=== PATIENT | female | born 1950 | race Caucasian/White ===

== ENCOUNTER 2016-10-18 18:03 | Emergency (ER) | payer MEDICARE, SELFPAY ==
[2016-10-18 15:10] LABS: BASOPHILS 0.3 %; BASOPHILS ABSOLUTE 0.02 10/3/uL (0.0-0.16); EOSINOPHILS 0.5 %; EOSINOPHILS ABSOLUTE 0.03 10/3/uL (0.0-0.53); ER CBC TAT 0 Hrs 14 Mins; HEMATOCRIT 36.2 % (36.0-48.0); HEMOGLOBIN 11.6 g/dL (12.0-16.0); IMMATURE GRANULOCYTES 0.3 %; IMMATURE GRANULOCYTES ABSOLUTE 0.02 10/3/uL (0.0-0.11); LYMPHOCYTES 19.5 %; LYMPHOCYTES ABSOLUTE 1.28 10/3/uL (0.67-4.30); MEAN CORPUSCULAR HEMOGLOB 26.9 pg (26.0-34.0); MEAN PLATELET VOLUME 10.1 fL (9.2-13.0); MONOCYTES 6.2 %; MONOCYTES ABSOLUTE 0.41 10/3/uL (0.21-1.20); NEUTROPHILS 73.2 %; NEUTROPHILS ABSOLUTE 4.82 10/3/uL (2.02-8.40); PLATELET COUNT 421 10/3/uL (150-400); RBC DISTRIBUTION WIDTH 14.5 % (12.0-16.0); RED CELL COUNT 4.31 10/6/uL (4.0-5.6); WHITE BLOOD CELLS 6.6 10/3/uL (4.5-10.5)
[2016-10-18 15:11] LABS: MANUAL DIFF NO %
[2016-10-18 15:25] LABS: ASCORBIC ACID (UR NOT ORDER) NEG (NEG); BILIRUBIN, URINE SMALL (NEG); ER URINALYSIS TAT 0 Hrs 18 Mins; KETONE, URINE 20 MG/DL (NEG); LEUKOCYTE ESTERASE(NOT OR SMALL (NEG); NITRITE (URINE) NEG (NEG); WBC (NOT ORDERED) (RFLEX) 12 (0-5)
[2016-10-18 15:27] LABS: ALBUMIN 3.7 G/DL (3.5-5.0); ALKALINE PHOSPHATASE 81 U/L (45-117); BUN (BLOOD UREA NITROGEN) 16 MG/DL (6-23); CHEST PAIN PROFILE TAT 0 Hrs 31 Mins; CHLORIDE, SERUM 106 MMOL/L (96-112); CO2 (CARBON DIOXIDE) 28 MMOL/L (24-34); CREATININE 0.67 MG/DL (0.55-1.02); DIRECT BILIRUBIN < 0.1 MG/DL (0.0-0.4); GFR AFRICAN AMERICAN 108 ML/MIN (>=60); GFR NON AFRICAN AMERICAN 93 ML/MIN (>=60); GLUCOSE, SERUM 93 MG/DL (60-99); INDIRECT BILIRUBIN(NOT ORDER) 0.2 MG/DL (0.1-0.9); POTASSIUM, SERUM 3.9 MMOL/L (3.5-5.3); SGOT(AST) 14 U/L (5-40); SGPT(ALT) 15 U/L (5-65); SODIUM, SERUM 139 MMOL/L (135-148); TOTAL BILIRUBIN 0.3 MG/DL (0-1.2); TOTAL PROTEIN 7.1 G/DL (6.0-8.5); TROPONIN I <0.02 NG/ML (<0.05)
[2016-10-18 15:28] LABS: INTERNATIONAL NORMAL RATI 1.2 UNITS (-); PARTIAL THROMBO TIME 27.4 SEC (22.5-37.2); PROTIME (NOT ORD) 14.6 SEC (12.0-14.5)
[~2016-10-18 18:03] MED LIST: ADVAIR115P INH; ADVAIR250 INH; ADVIL PO; ALEVE220 MG PO; ANTACID OTC PO; ANUSOL-HC2.5 % RE; ASA5GR PO; ASABAYER PO; ATROVENTUD INH; ATV1 PO; B121000P IM; BUSPAR10 PO; CAT1 PO; CEFT2 PO; COMBIVENT INH; COMBIVENT INHAL15 GM INH; CRESTOR10 PO; FLUCON150 PO; FLUOXETINE20 MG OR; GOODY'S EX PO; HYDROCHLOROT25 MG PO; HYOMAX-FT0.125 MG PO; L20 PO; LEVSIN PO; LEVSINTAB PO; LIDOCAINE 2% VISCOUS PO; LIDOCAINE PO; LIDOVISCUD; LIOR10 PO; LISINOPRIL40 MG PO; LORTAB 5 PO; LORTAB10 PO; MYLANTA PO; MYLUD PO; NASONEX NAS; NEO/POLY/HC OTIC OT; NEUR100 PO; NEUR300 PO; NORCO1 TAB PO; NORV10 PO; NORV5 PO; OPANA ER40 MG PO; OXYCON40 PO; PR25 PO; PREV30 PO; PRILO PO; PRIN20 PO; PROAIR HFA INH; PROCTOSOL HC2.5 % RE; PROTONIX PO; PROZ10 PO; PROZAC PO; PROZAC40 MG PO; PULMICORT RESP0.5 MG INH; PULRESP.5 INH; REG PO; REGLAN10 MG OR; REM15 PO; ROBITUSS11 OR; ROXICET1 TAB PO; SENTAB PO; SLOW FE160 MG PO; SPIRIVA INH; SUCR PO; T PO; TRANSSCOP TOP; TUSSIN DM1 M1 OR; TUSSIN DM1 M1 PO; TUSSIN OR; ULTRAM50 PO; VOLTAREN1 % TOP; XANAX1 MG PO; ZESTRIL30 MG PO; ZOFRAN8 PO; ZOFRANODT8 PO
[2016-11-07] MEDS ORDERED: ASAB PO (16:30)
[2016-11-07] MEDS ORDERED: ALBUTEROL0.63 MG/3 INH (16:32)
[2016-11-07] MEDS ORDERED: CARASPUDL PO (16:43)
[2016-11-07] MEDS ORDERED: PREV30 PO (16:44)
[2016-12-17] MEDS ORDERED: ASA5GR PO (15:28)
[2016-12-17] MEDS ORDERED: CRESTOR10 PO (15:29)
[2016-12-17] MEDS ORDERED: CAT2 PO (18:17)
[2016-12-18] MEDS ORDERED: KDUR20 PO (13:27)
[2016-12-18] MEDS ORDERED: CEFT5 PO (13:27)
[2016-12-18] MEDS ORDERED: PROBIOTIC PO (13:37)
[2016-12-18] MEDS ORDERED: MUCINEX1200 MG PO (14:06)
== END 2016-10-18 18:05 | disposition home or self-care (01) ==
LOC: ER 18:03
PROVIDERS: Physician Assistant
DX: R10.9 Unspecified abdominal pain (principal); J44.9 Chronic obstructive pulmonary disease, unspecified; I10 Essential (primary) hypertension; K21.9 Gastro-esophageal reflux disease without esophagitis; F32.9 Major depressive disorder, single episode, unspecified; F41.9 Anxiety disorder, unspecified; Z88.0 Allergy status to penicillin; Z88.1 Allergy status to other antibiotic agents; Z88.8 Allergy status to other drugs, medicaments and biological substances; Z91.040 Latex allergy status; Z91.041 Radiographic dye allergy status; Z79.82 Long term (current) use of aspirin; Z79.891 Long term (current) use of opiate analgesic; Z79.899 Other long term (current) drug therapy
CPT/HCPCS: 71010; 80048; 80076; 81001; 83690; 83735; 84484; 85025; 85610; 85730; 87086; 93005; 96374; 99284; A9270-GY; J2405

== ENCOUNTER 2016-12-14 15:06 | Emergency (ER) | payer MEDICARE ==
[~2016-12-14 15:06] MED LIST changes: +ALBUTEROL0.63 MG/3 INH; +ASAB PO; +CARASPUDL PO
[2016-12-14] MEDS ORDERED: XANAX1 MG PO (16:10)
[2016-12-14] MEDS ORDERED: MOVIPREP PO (16:10)
[2016-12-14] MEDS ORDERED: PROAIR HFA INH (16:11)
[2016-12-14] MEDS ORDERED: CAT2 PO (16:11)
[2016-12-14] MEDS ORDERED: PRIN20 PO (16:11)
[2016-12-14] MEDS ORDERED: PROZAC40 MG PO (16:12)
[2016-12-14] MEDS ORDERED: PREV30 PO (16:12)
[2016-12-14] MEDS ORDERED: CRESTOR10 PO (16:13)
[2016-12-14] MEDS ORDERED: HALF81 PO (16:13)
[2016-12-14] MEDS ORDERED: CARASPUDL PO (16:15)
[2016-12-14] MEDS ORDERED: SPIRIVA INH (16:15)
[2016-12-14] MEDS ORDERED: ACET500CAP PO (16:16)
[2016-12-14] MEDS ORDERED: ALBUTEROL0.083 % INH (16:16)
[2016-12-14 16:30] LABS: BASOPHILS 0.2 %; BASOPHILS ABSOLUTE 0.02 10/3/uL (0.0-0.16); EOSINOPHILS 0.5 %; EOSINOPHILS ABSOLUTE 0.04 10/3/uL (0.0-0.53); HEMATOCRIT 31.8 % (36.0-48.0); HEMOGLOBIN 10.1 g/dL (12.0-16.0); IMMATURE GRANULOCYTES 0.2 %; IMMATURE GRANULOCYTES ABSOLUTE 0.02 10/3/uL (0.0-0.11); LYMPHOCYTES 15.2 %; LYMPHOCYTES ABSOLUTE 1.33 10/3/uL (0.67-4.30); MEAN CORPUS HGB CONC 31.8 g/dL (32.0-36.0); MEAN CORPUSCULAR HEMOGLOB 27.4 pg (26.0-34.0); MEAN CORPUSCULAR VOLUME 86.2 fL (80-100); MEAN PLATELET VOLUME 9.6 fL (9.2-13.0); MONOCYTES 5.9 %; MONOCYTES ABSOLUTE 0.52 10/3/uL (0.21-1.20); NEUTROPHILS ABSOLUTE 6.84 10/3/uL (2.02-8.40); PLATELET COUNT 433 10/3/uL (150-400); RBC DISTRIBUTION WIDTH 16.7 % (12.0-16.0); RED CELL COUNT 3.69 10/6/uL (4.0-5.6); WHITE BLOOD CELLS 8.8 10/3/uL (4.5-10.5)
[2016-12-14 16:34] LABS: MANUAL DIFF NO %
[2016-12-14 16:39] LABS: INTERNATIONAL NORMAL RATI 1.2 UNITS (-); PROTIME (NOT ORD) 15.4 SEC (12.0-14.5)
[2016-12-14 16:45] LABS: A/G RATIO 0.7 (0.7-1.9); ALBUMIN 3.1 G/DL (3.5-5.0); ALKALINE PHOSPHATASE 88 U/L (45-117); CALCIUM, SERUM 8.7 MG/DL (8.5-10.4); CHLORIDE, SERUM 110 MMOL/L (96-112); CO2 (CARBON DIOXIDE) 25 MMOL/L (24-34); CREATININE 0.85 MG/DL (0.55-1.02); GFR AFRICAN AMERICAN 84 ML/MIN (>=60); GFR NON AFRICAN AMERICAN 72 ML/MIN (>=60); GLUCOSE, SERUM 96 MG/DL (60-99); POTASSIUM, SERUM 3.4 MMOL/L (3.5-5.3); SGOT(AST) 16 U/L (5-40); SGPT(ALT) 18 U/L (5-65); SODIUM, SERUM 143 MMOL/L (135-148); TOTAL BILIRUBIN 0.2 MG/DL (0-1.2); TOTAL PROTEIN 7.3 G/DL (6.0-8.5)
[2016-12-14 16:46] LABS: BUN (BLOOD UREA NITROGEN) 18 MG/DL (6-23); GLOBULIN 4.2 G/DL (2.5-4.1)
[2016-12-17] MEDS ORDERED: ASA5GR PO (15:28)
[2016-12-17] MEDS ORDERED: CRESTOR10 PO (15:29)
[2016-12-17] MEDS ORDERED: CAT2 PO (18:17)
[2016-12-18] MEDS ORDERED: KDUR20 PO (13:27)
[2016-12-18] MEDS ORDERED: CEFT5 PO (13:27)
[2016-12-18] MEDS ORDERED: PROBIOTIC PO (13:37)
[2016-12-18] MEDS ORDERED: MUCINEX1200 MG PO (14:06)
== END 2016-12-14 19:07 | disposition home or self-care (01) ==
LOC: ER 15:06
PROVIDERS: Hospitalist
DX: S09.90XA Unspecified injury of head, initial encounter (principal); E87.6 Hypokalemia; R42 Dizziness and giddiness; J44.9 Chronic obstructive pulmonary disease, unspecified; I10 Essential (primary) hypertension; K21.9 Gastro-esophageal reflux disease without esophagitis; F32.9 Major depressive disorder, single episode, unspecified; F41.9 Anxiety disorder, unspecified; Z90.710 Acquired absence of both cervix and uterus; Z88.1 Allergy status to other antibiotic agents; Z91.041 Radiographic dye allergy status; Z88.0 Allergy status to penicillin; Z88.8 Allergy status to other drugs, medicaments and biological substances; Z91.040 Latex allergy status; Z79.899 Other long term (current) drug therapy; Z79.82 Long term (current) use of aspirin; W19.XXXA Unspecified fall, initial encounter
CPT/HCPCS: 36415; 80053; 85025; 85610; 85730; 86850; 86900; 86901; 96374; 96375; 99284; C9113; J2405